=== PATIENT | female | born 1945 | race Caucasian/White ===

== ENCOUNTER 2024-09-21 21:29 | Inpatient (IN) | payer MEDICARE, OTHER ==
[2024-09-21 22:05] VITALS: BMI 21.6
[2024-09-21] MEDS ORDERED: BACITRACIN ZINC 15 GM TUBE TOPICAL OINTMENT ONE (22:11)
[2024-09-21] MEDS: BACITRACIN ZINC 15 GM TUBE TOPICAL OINTMENT TP ONE (22:13)
[2024-09-21] MEDS ORDERED: IBUPROFEN 400 MG TABLET (FP) PO ONE ×2 (23:09→23:13)
[2024-09-21] MEDS: IBUPROFEN 400 MG TABLET (FP) PO ONE (23:14)
[2024-09-22 01:19] LABS: ABSOLUTE IMMATURE GRANULOCYTES 0.04 x10^3/uL (0.0-0.031); BASOPHILS # 0.04 x10^3/uL (0.01-0.08); EOSINOPHILS # 0.97 x10^3/uL (0.04-0.36); HEMATOCRIT 38.7 % (34.1-44.9); MEAN CELL VOLUME 98.7 fl (79.4-94.8); MONOCYTE # 0.66 x10^3/uL (0.24-0.86); MONOCYTE % 5.4 % (4.7-12.5); PLATELET COUNT 237 x10^3/uL (182-369); RDW 15.2 % (12.4-16.6)
[2024-09-22 01:37] LABS: INR 1.05 (0.83-1.09); PROTHROMBIN TIME (PATIENT) 11.4 SEC (9.7-13.0)
[2024-09-22 01:42] LABS: POTASSIUM 4.4 mmol/L (3.5-5.1)
[2024-09-22 01:44] LABS: CALCIUM 9.5 mg/dL (8.5-10.1)
[2024-09-22 01:45] LABS: ALBUMIN 3.2 g/dl (3.4-5.0); BLOOD UREA NITROGEN 40.9 mg/dL (7-18)
[2024-09-22 01:48] LABS: CREATININE 1.3 mg/dL (0.55-1.3)
[2024-09-22 01:49] LABS: BILIRUBIN,TOTAL 0.8 mg/dL (0.2-1); TOT PROT 6.7 g/dl (6.4-8.2)
[2024-09-22] MEDS ORDERED: HEPARIN NA (PORCINE) 5,000 UNITS/ML 1ML VIAL SQ SCH (06:00)
[2024-09-22] MEDS: ACETAMINOPHEN 1000 MG/100 ML BAG IVPB PRN ×2 (06:01→14:16)
[2024-09-22] MEDS: LISINOPRIL 20 MG TABLET PO SCH (09:22)
[2024-09-22 09:26] LABS: ABSOLUTE IMMATURE GRANULOCYTES 0.05 x10^3/uL (0.0-0.031); BASOPHILS # 0.03 x10^3/uL (0.01-0.08); EOSINOPHIL % 10.7 % (0.7-5.8); EOSINOPHILS # 0.99 x10^3/uL (0.04-0.36); HEMOGLOBIN 10.2 g/dL (11.2-15.7); MCHC 31.9 g/dl (32.2-35.5); MEAN PLT VOLUME 9.2 fl (9.4-12.3); MONOCYTE # 0.64 x10^3/uL (0.24-0.86); MONOCYTE % 6.9 % (4.7-12.5); PLATELET COUNT 215 x10^3/uL (182-369)
[2024-09-22] MEDS ORDERED: VANCOMYCIN 1,000 MG VIAL (RESTRICTED TO ID ONLY) ONE (09:37)
[2024-09-22] MEDS ORDERED: ceFAZolin SODIUM 1 GM VIAL ONE ×3 (09:38→10:52)
[2024-09-22 10:02] LABS: POTASSIUM 4.1 mmol/L (3.5-5.1)
[2024-09-22] MEDS ORDERED: MIDAZOLAM HCL 2 MG/2 ML SINGLE DOSE VIAL ONE (10:08)
[2024-09-22] MEDS ORDERED: BUPIVACAINE HCL/PF 0.5% (5MG/ML) 10 ML VIAL ONE (10:14)
[2024-09-22 10:21] LABS: ALBUMIN 2.7 g/dl (3.4-5.0); BLOOD UREA NITROGEN 39.8 mg/dL (7-18); CALCIUM 8.9 mg/dL (8.5-10.1); MAGNESIUM 2.8 mg/dL (1.8-2.4)
[2024-09-22 10:24] LABS: PHOSPHOROUS 3.6 mg/dL (2.5-4.9)
[2024-09-22 10:25] LABS: BILIRUBIN,TOTAL 0.8 mg/dL (0.2-1)
[2024-09-22 10:28] LABS: TOT PROT 5.6 g/dl (6.4-8.2)
[2024-09-22 10:49] LABS: CREATININE 1.2 mg/dL (0.55-1.3)
[2024-09-22] MEDS: ceFAZolin SODIUM 1 GM VIAL IVPB ONE (10:55)
[2024-09-22] MEDS ORDERED: ONDANSETRON 4 MG/2 ML VIAL IVPUSH PRN ×2 (11:05→12:30)
[2024-09-22] MEDS ORDERED: oxyCODONE HCL 5 MG TABLET PO PRN (11:06)
[2024-09-22] MEDS ORDERED: LACTATED RINGERS SOLUTION 1,000 ML IV SCH (11:15)
[2024-09-22] MEDS: VANCOMYCIN 1,000 MG VIAL (RESTRICTED TO ID ONLY) IVPB ONE (11:30)
[2024-09-22] MEDS: LACTATED RINGERS SOLUTION 1,000 ML IV SCH (13:24)
[2024-09-22] MEDS: ACETAMINOPHEN INJECTION 100 ML ONE (14:16)
[2024-09-22] MEDS ORDERED: CEFAZOLIN 2 GM/D5W 2 GM/50 ML ML IVPB SCH (19:00)
[2024-09-22] MEDS: CEFAZOLIN 2 GM/D5W 2 GM/50 ML ML IVPB SCH (20:00)
[2024-09-22] MEDS: PREGABALIN 25 MG CAPSULE PO SCH (23:16)
[2024-09-23] MEDS ORDERED: ASPIRIN 325 MG TABLET PO SCH (08:00)
[2024-09-23 08:51] LABS: HEMATOCRIT 32.3 % (34.1-44.9); HEMOGLOBIN 10.3 g/dL (11.2-15.7); MCHC 31.9 g/dl (32.2-35.5); MEAN CELL VOLUME 99.4 fl (79.4-94.8); MEAN PLT VOLUME 9.3 fl (9.4-12.3); PLATELET COUNT 217 x10^3/uL (182-369); RDW 14.7 % (12.4-16.6)
[2024-09-23] MEDS: ASPIRIN 325 MG TABLET PO SCH (08:52)
[2024-09-23] MEDS: MULTIVITAMINS (DAILY MVI) TABLET (FP) PO SCH (09:10)
[2024-09-23] MEDS: PANTOPRAZOLE 40 MG TABLET PO SCH (09:10)
[2024-09-23] MEDS: SODIUM CHLORIDE 1,000 ML IV SCH (09:12)
[2024-09-23] MEDS: ACETAMINOPHEN 1000 MG/100 ML BAG IVPB PRN (09:35)
[2024-09-23] MEDS ORDERED: MULTIVITAMINS (DAILY MVI) TABLET (FP) PO SCH (10:00)
[2024-09-23] MEDS ORDERED: PANTOPRAZOLE 40 MG TABLET PO SCH (10:00)
[2024-09-23 10:04] LABS: ALBUMIN 2.5 g/dl (3.4-5.0); BILIRUBIN,TOTAL 0.6 mg/dL (0.2-1)
[2024-09-23 10:06] LABS: BLOOD UREA NITROGEN 30.5 mg/dL (7-18)
[2024-09-23 10:07] LABS: CALCIUM 8.6 mg/dL (8.5-10.1); CREATININE 0.8 mg/dL (0.55-1.3); MAGNESIUM 2.4 mg/dL (1.8-2.4); PHOSPHOROUS 3.8 mg/dL (2.5-4.9)
[2024-09-23 10:08] LABS: TOT PROT 5.3 g/dl (6.4-8.2)
[2024-09-23] MEDS: LISINOPRIL 20 MG TABLET PO SCH (10:54)
[2024-09-23] MEDS ORDERED: ACETAMINOPHEN 1000 MG/100 ML BAG IVPB SCH (11:30)
[2024-09-23] MEDS: ACETAMINOPHEN 1000 MG/100 ML BAG IVPB SCH (16:47)
[2024-09-23] MEDS: oxyCODONE HCL 5 MG TABLET PO PRN (19:17)
[2024-09-23] MEDS: POLYETHYLENE GLYCOL (HEALTHYLAX) 3350 17 GM PACKET PO SCH (21:29)
[2024-09-23] MEDS ORDERED: PREGABALIN 25 MG CAPSULE PO SCH (22:00)
[2024-09-24 08:32] LABS: HEMATOCRIT 33.3 % (34.1-44.9); HEMOGLOBIN 10.5 g/dL (11.2-15.7); MCHC 31.5 g/dl (32.2-35.5); MEAN CELL VOLUME 99.1 fl (79.4-94.8); MEAN PLT VOLUME 9.1 fl (9.4-12.3); PLATELET COUNT 209 x10^3/uL (182-369); RDW 14.4 % (12.4-16.6)
[2024-09-24 08:49] LABS: POTASSIUM 4.2 mmol/L (3.5-5.1)
[2024-09-24 08:57] LABS: ALBUMIN 2.4 g/dl (3.4-5.0); BLOOD UREA NITROGEN 30.6 mg/dL (7-18); CALCIUM 8.9 mg/dL (8.5-10.1)
[2024-09-24 08:58] LABS: MAGNESIUM 2.3 mg/dL (1.8-2.4)
[2024-09-24 09:00] LABS: CREATININE 0.9 mg/dL (0.55-1.3)
[2024-09-24 09:01] LABS: PHOSPHOROUS 3.6 mg/dL (2.5-4.9)
[2024-09-24 09:02] LABS: BILIRUBIN,TOTAL 0.9 mg/dL (0.2-1); TOT PROT 5.5 g/dl (6.4-8.2)
[2024-09-25] MEDS: PREGABALIN 25 MG CAPSULE PO ONE (16:47)
[2024-09-25 21:30] VITALS: RESP 18
[2024-09-26] MEDS: PREGABALIN 25 MG CAPSULE PO SCH (10:31)
[2024-09-26] MEDS: ACETAMINOPHEN 1000 MG/100 ML BAG IVPB PRN (17:21)
[2024-09-27] MEDS: oxyCODONE HCL 5 MG TABLET PO PRN (09:02)
[2024-09-27 09:12] VITALS: BP 101/60; PULSE 99; TEMP 98.4
[2024-09-27] MEDS ORDERED: ZINC SULFATE 220 MG CAPSULE (FP) PO SCH (22:00)
== END 2024-09-27 15:57 | DRG 522 ==
LOC: JER 21:29 → JERBED 23:52 → J5S 09-22 04:36 → J6S 09-22 15:25
PROVIDERS: ADMIT Student in an Organized Health Care Education/Training Program; ATTEND Internal Medicine
PROC: 0SRR0JA Replacement of Right Hip Joint, Femoral Surface with Synthetic Substitute, Uncemented, Open Approach (ICD-10-PCS; principal; 2024-09-22 14:00)
DX: S72.011A Unspecified intracapsular fracture of right femur, initial encounter for closed fracture (principal); I10 Essential (primary) hypertension; G62.9 Polyneuropathy, unspecified; I95.9 Hypotension, unspecified; L89.622 Pressure ulcer of left heel, stage 2; L89.152 Pressure ulcer of sacral region, stage 2; W01.0XXA Fall on same level from slipping, tripping and stumbling without subsequent striking against object, initial encounter; Y93.89 Activity, other specified; Y92.009 Unspecified place in unspecified non-institutional (private) residence as the place of occurrence of the external cause; Y99.8 Other external cause status
CPT/HCPCS: 36415; 72170-TC-FY; 73502-TC-RT-FY; 73552-TC-RT-FY; 73562-TC-RT-FY; 80048; 80053; 82962; 83735; 84100; 85025; 85027; 85610; 86850; 86900; 86901; 88305-TC; 88311-TC; 93005; 93010; 94010; 94760; 97116-GP; 97162-GP; 99285-25; C1713; C1776; J0131